=== PATIENT | male | born 1950 | race Caucasian/White ===

== ENCOUNTER → 2018-06-28 | Outpatient (REF) | payer MEDICARE, OTHER ==
[~2018-06-28] MED LIST: ASPIRIN LOW DOS81 M2 PO; BUMETANIDE2 MG PO; KLOR-CON M2020 MEQ PO; LOPRESSOR50 M1 PO; NO HOME MEDS; ONE DAIL1 PO; PRAVACHOL80 MG PO; PRILOSEC20 MG/CAP PO; ZESTRIL/PRI10 MG/TAB PO
[2018-06-28 08:12] LABS: IMMATURE GRANULOCYTES 0.3 % (0.0-5.0); MEAN CELL VOLUME 95.8 fL CALC (80.0-100.0); MEAN CORPUSCULAR HGB 32.7 pG CALC (26.0-32.0); MEAN CORPUSCULAR HGB CONC 34.1 g/L CALC (32.0-36.0); NEUT# 4.14 thou/uL (1.82-7.42); RED BLOOD COUNT 3.85 mill/uL (4.70-6.10); RED CELL DISTRI WIDTH 11.9 % (11.5-15.5)
[2018-06-28 08:15] LABS: HEMATOCRIT 36.9 % (39.0-50.0); HEMOGLOBIN 12.6 g/dl (14.0-18.0)
[2018-06-28 08:28] LABS: ALBUMIN 4.2 g/dL (3.2-5.0); ALKALINE PHOSPHATASE 90 u/l (38-126); ANION GAP 10 (6-22 (CALC)); BILIRUBIN, TOTAL 1.3 mg/dL (0.0-1.4); BUN 15 mg/dL (8-23); BUN/CREATININE RATIO 15 (12-20 (CALC)); CALCULATED LDLCHOLESTEROL 47 mg/dL (62-129 (CALC)); CARBON DIOXIDE 34 mmol/l (22-30); CHLORIDE 97 mmol/l (95-108); CHOLESTEROL HDL RATIO 2.1 (<4.4 (CALC)); CPK 44 u/l (52-200); GFR > 60 ML/MIN (>=60 (CALC)); GFR FOR AFR.AMER. > 60 ML/MIN (>=60 (CALC)); HDL CHOLESTEROL 57 mg/dL (>=40); POTASSIUM 3.5 mmol/l (3.5-5.1); SGOT/AST 34 u/l (19-48); SODIUM 139 mmol/l (137-146); TOTAL CHOLESTEROL 119 mg/dl (0-199); TOTAL PROTEIN 6.5 g/dL (6.3-8.2); TOTAL TRIGLYCERIDES 79 mg/dl (30-149); VLDL CHOLESTROL 16 mg/dl (4-45 (CALC))
== END | disposition home or self-care (01) ==
LOC: LAB 06:47
DX: I10 Essential (primary) hypertension (principal); I25.10 Atherosclerotic heart disease of native coronary artery without angina pectoris; I50.32 Chronic diastolic (congestive) heart failure

== ENCOUNTER 2022-09-28 13:38 | Emergency (ER) | payer MEDICARE, OTHER ==
[~2022-09-28] VITALS: Ht 170.2 cm; Wt 77.0 kg
[2022-09-28 14:01] VITALS: BP 130/115
[2022-09-28 14:30] VITALS: BP 139/71
[2022-09-28 16:19] VITALS: BP 139/71
[2022-09-28] MEDS ORDERED: MOTRIN800 MG PO (16:25)
[2022-09-28] MEDS ORDERED: BACLOFEN10 MG PO (16:25)
== END 2022-09-28 16:24 | disposition home or self-care (01) ==
LOC: ED 13:38
DX: M54.6 Pain in thoracic spine (principal); M25.512 Pain in left shoulder; M25.511 Pain in right shoulder; I10 Essential (primary) hypertension; I25.2 Old myocardial infarction; Z95.1 Presence of aortocoronary bypass graft

== ENCOUNTER 2022-10-06 07:00 | Emergency (ER) | payer MEDICARE, OTHER ==
[~2022-10-06] VITALS: Ht 170.2 cm; Wt 75.9 kg
[~2022-10-06 07:00] MED LIST changes: +BACLOFEN10 MG PO; +MOTRIN800 MG PO
[2022-10-06 07:15] VITALS: BP 137/80
[2022-10-06] MEDS ORDERED: PREDNISONE50 MG PO (08:46)
[2022-10-06] MEDS ORDERED: TRAMADOL HYDROC50 M1 PO (08:48)
[2022-10-06 09:00] VITALS: BP 137/80
== END 2022-10-06 09:09 | disposition home or self-care (01) ==
LOC: ED 07:00
DX: M25.512 Pain in left shoulder (principal); M25.511 Pain in right shoulder; M54.2 Cervicalgia; I10 Essential (primary) hypertension; Z95.1 Presence of aortocoronary bypass graft

== ENCOUNTER 2023-06-06 06:21 | Emergency (ER) | payer MEDICARE, OTHER ==
[2023-06-06] VITALS (9 sets, daily range): BP systolic 99–116; BP diastolic 55–67
[~2023-06-06] VITALS: Ht 170.2 cm; Wt 63.5 kg
[~2023-06-06 06:21] MED LIST changes: +PREDNISONE50 MG PO; +TRAMADOL HYDROC50 M1 PO
[2023-06-06] MEDS ORDERED: LIPITOR80 M1 PO (06:35)
[2023-06-06] MEDS ORDERED: LISINOPRIL10 MG PO (06:36)
[2023-06-06] MEDS ORDERED: MELOXICAM15 MG PO (06:36)
[2023-06-06] MEDS ORDERED: AMITRIPTYLINE H25 MG PO (06:38)
[2023-06-06] MEDS ORDERED: ALLOPURINOL200 MG PO (06:39)
[2023-06-06] MEDS ORDERED: LEVOTHYROXIN50 MCG PO (06:39)
[2023-06-06 07:45] LABS: ANION GAP 8 (6-22 (CALC)); BUN 17 mg/dL (8-23); BUN/CREATININE RATIO 17 (12-20 (CALC)); CARBON DIOXIDE 32 mmol/l (22-30); CHLORIDE 97 mmol/l (95-108); GFR FOR AFR.AMER. > 60 ML/MIN (>=60 (CALC)); GFR OTHER RACES > 60 ML/MIN (>=60 (CALC)); POTASSIUM 3.1 mmol/l (3.5-5.1); SODIUM 134 mmol/l (137-146)
[2023-06-06 08:16] LABS: TSH, 3RD GENERATION 2.97 uIU/mL (0.47 - 4.68)
[2023-06-06] MEDS ORDERED: MITIGARE0.6 MG PO (08:22)
[2023-06-06] MEDS ORDERED: PREDNISONE50 MG PO (08:24)
== END 2023-06-06 08:34 | disposition home or self-care (01) ==
LOC: ED 06:21
PROVIDERS: Family Medicine
DX: M10.062 Idiopathic gout, left knee (principal); I10 Essential (primary) hypertension; Z95.1 Presence of aortocoronary bypass graft

== ENCOUNTER 2023-06-21 08:09 | Emergency (ER) | payer MEDICARE, OTHER ==
[~2023-06-21] VITALS: Ht 170.2 cm; Wt 82.0 kg
[~2023-06-21 08:09] MED LIST changes: +ALLOPURINOL200 MG PO; +AMITRIPTYLINE H25 MG PO; +LEVOTHYROXIN50 MCG PO; +LIPITOR80 M1 PO; +LISINOPRIL10 MG PO; +MELOXICAM15 MG PO; +MITIGARE0.6 MG PO
[2023-06-21 08:16] VITALS: BP 115/66
[2023-06-21 08:30] VITALS: BP 100/56
[2023-06-21] MEDS ORDERED: KETOROLAC TROMETHAMINE 30 MG/ML SDV IM ONE (08:35)
[2023-06-21] MEDS ORDERED: methylPREDNISolone SODIUM SUCC 125 MG/2 ML SDV IM ONE (08:35)
[2023-06-21] MEDS ORDERED: COLCHICINE 0.6 MG/TAB PO ONE (08:35)
[2023-06-21 08:45] VITALS: BP 114/65
[2023-06-21] MEDS ORDERED: COLCHICINE0.6 M2 PO (08:50)
[2023-06-21] MEDS ORDERED: MEDDOSEPAK PO (08:51)
[2023-06-21 08:53] VITALS: BP 114/65
== END 2023-06-21 09:05 | disposition home or self-care (01) ==
LOC: ED 08:09
DX: M10.09 Idiopathic gout, multiple sites (principal); I10 Essential (primary) hypertension; F17.220 Nicotine dependence, chewing tobacco, uncomplicated; Z95.1 Presence of aortocoronary bypass graft

== ENCOUNTER 2024-07-06 07:32 | Day surgery (SDC) | payer MEDICARE, OTHER ==
[~2024-07-06] VITALS: Ht 170.2 cm; Wt 74.8 kg
[~2024-07-06 07:32] MED LIST changes: +ASPIRIN81 MG PO; +BUMETANIDE1 MG PO; +COLCHICINE0.6 M2 PO; +LEVOFLOXACIN500MG PO; +LEVOFLOXACIN750 MG PO; +LEVOTHYROXIN88 MC1 PO; +LISINOPRIL2.5 MG PO; +MEDDOSEPAK PO; +METOPROL TAR100 MG PO; +METOPROLOL PO; +OMEPRAZOLE20 M4 PO; +TRAZODONE50 MG PO
[2024-07-06] MEDS ORDERED: FAMOTIDINE 10MG/ML 2ML SDV IV ONE (07:35)
[2024-07-06] MEDS ORDERED: LACTATED RINGER'S 1,000 ML IV ONE (07:36)
[2024-07-06] MEDS ORDERED: OMEPRAZOLE20 M4 PO (08:55)
[2024-07-06] MEDS ORDERED: PRILOSEC20 MG/CAP PO (10:13)
[2024-07-06] MEDS ORDERED: LIDOCAINE HCL 2% 2ML SDV IV ONE (10:32)
[2024-07-06] MEDS ORDERED: GLYCOPYRROLATE 0.2 MG/ML IV ONE (10:32)
[2024-07-06] MEDS ORDERED: PROPOFOL 200 MG/20 ML VIAL IV ONE (10:32)
[2024-07-06 11:01] VITALS: BP 141/75
== END 2024-07-06 09:37 | disposition home or self-care (01) ==
LOC: ORM 07:32
PROVIDERS: ATTEND Surgery
PROC: 0DB48ZX Excision of Esophagogastric Junction, Via Natural or Artificial Opening Endoscopic, Diagnostic (ICD-10-PCS; principal; 2024-07-06)
PROC: 0DB78ZX Excision of Stomach, Pylorus, Via Natural or Artificial Opening Endoscopic, Diagnostic (ICD-10-PCS; 2024-07-06)
PROC: 0DB68ZX Excision of Stomach, Via Natural or Artificial Opening Endoscopic, Diagnostic (ICD-10-PCS; 2024-07-06)
DX: K20.90 Esophagitis, unspecified without bleeding (principal); K29.50 Unspecified chronic gastritis without bleeding; K31.89 Other diseases of stomach and duodenum; K31.7 Polyp of stomach and duodenum; I12.9 Hypertensive chronic kidney disease with stage 1 through stage 4 chronic kidney disease, or unspecified chronic kidney disease; N18.9 Chronic kidney disease, unspecified; I25.10 Atherosclerotic heart disease of native coronary artery without angina pectoris; I48.91 Unspecified atrial fibrillation; E78.5 Hyperlipidemia, unspecified; E03.9 Hypothyroidism, unspecified; I27.20 Pulmonary hypertension, unspecified; I07.1 Rheumatic tricuspid insufficiency; I25.2 Old myocardial infarction; Z95.1 Presence of aortocoronary bypass graft; Z87.19 Personal history of other diseases of the digestive system
CPT/HCPCS: J1596